=== PATIENT | female | born 1995 | race Caucasian/White ===

== ENCOUNTER 2017-01-04 22:41 | Emergency (ER) | payer OTHER ==
[2017-01-04] MEDS ORDERED: NS 0.9% 1000 ML* 1,000 ML IV ONE (23:14)
[2017-01-04] MEDS ORDERED: RHO D Immune Globulin (HUMAN)* 300 MCG = 1,500 I.U. INJ IM ONE (23:28)
[2017-01-05 00:06] LABS: Hematocrit 33 % (35-47); Mean Corpuscular HGB Conc 33 g/dl (31-36); Mean Corpuscular Hemoglobin 26 pg (27-31); Mean Corpuscular Volume 78 fL (80-97); Mean Platelet Volume 9 um3 (7.4-10.4); Red Blood Count 4.26 10^6/ul (4.0-5.4); Red Cell Distribution Width 16 % (10.5-15); White Blood Count 7.5 10^3/ul (3.5-10.8)
[2017-01-05 00:21] LABS: Albumin 3.9 g/dL (3.2-5.2); BUN/Creatinine Ratio 13.6 (8-20); C Reactive Protein 6.76 mg/L (< 5.00); Calcium 9.2 mg/dL (8.6-10.3); EGFR African American 163.9 (>60); EGFR Non-African American 127.5 (>60); Globulin 2.8 g/dL (2-4); Potassium 3.3 mmol/L (3.5-5.0); Total Bilirubin 0.3 mg/dL (0.2-1.0); Total Protein 6.7 g/dL (6.4-8.9)
--- NOTE | 2017-01-05 00:57 | ED ---
- HPI Summary HPI Summary: 21F LMP september at 12 weeks presents with vaginal bleeding today. She states she was at work and felt like she had to go to the bathroom. In the bathroom she noticed that she had bleed through her underwear into her pants. She states it was a large amount of blood initially but has since slowed down. She denies any symptoms of blood loss such as lightheadedness. She denies any pain. She denies any history of bleeding in previous . She does get rhogram as she is o neg. She admits to occasionally nausea and vomiting but not currently. She admits to chronic constipation with the . She denies any fever. Her first ob appointment is tomorrow. She did contact dr littlejohn who advised her to come here. - History of Current Complaint Chief Complaint: EDVaginalBleeding Stated Complaint: VAG BLEEDING-12 WKS PREG Time Seen by Provider: 01/04/17 23:12 Pain Intensity: 0 - Allergies/Home Medications Allergies/Adverse Reactions: Allergies Allergy/AdvReac Type Severity Reaction Status Date / Time No Known Allergies Allergy Verified 01/04/17 22:44 PMH/Surg Hx/FS Hx/Imm Hx Endocrine/Hematology History: Denies: Hx Anticoagulant Therapy Cardiovascular History: Denies: Hx Hypertension Infectious Disease History: No Infectious Disease History: Denies: Traveled Outside the [place] in Last 30 Days - Family History Known Family History: Positive: Other - no family history of ectopic pregnanct - Social History Alcohol Use: None Substance Use Type: Reports: None Smoking Status (MU): Never Smoked Tobacco Review of Systems Negative: Fever Positive: Vomiting, Diarrhea, Nausea, Other - vaginal bleeding. Negative: Abdominal Pain All Other Systems Reviewed And Are Negative: Yes Physical Exam - Physical Exam Triage Information Reviewed: Yes Vital Signs Reviewed: Yes Appearance: Positive: Well-Appearing Skin: Positive: Warm, Dry Head/Face: Positive: Normal Head/Face Inspection Eyes: Positive: Normal, Conjunctiva Clear Respiratory/Lung Sounds: Positive: Clear to Auscultation, Breath Sounds Present Cardiovascular: Positive: Normal, RRR Abdomen Description: Positive: Nontender, Soft Bowel Sounds: Positive: Present Psychiatric: Positive: Normal Diagnostics - Vital Signs Vital Signs Temp Pulse Resp BP Pulse Ox 01/05/17 00:01 71 105/58 100 01/04/17 23:22 76 98 01/04/17 23:17 77 98 01/04/17 23:16 99.2 F 84 16 97/57 98 01/04/17 23:15 97/57 01/04/17 22:45 99.2 F 77 16 122/67 98 - Laboratory Lab Results: Lab Results 01/04/17 01/04/17 01/04/17 Range/Units 23:50 23:50 23:50 WBC 7.5 (3.5-10.8) 10^3/ul RBC 4.26 (4.0-5.4) 10^6/ul Hgb 11.0 L (12.0-16.0) g/dl Hct 33 L (35-47) % MCV 78 L (80-97) fL MCH 26 L (27-31) pg MCHC 33 (31-36) g/dl RDW 16 H (10.5-15) % Plt Count 143 L (150-450) 10^3/ul MPV 9 (7.4-10.4) um3 Neut % (Auto) 62.6 (38-83) % Lymph % (Auto) 28.7 (25-47) % [place] % (Auto) 7.7 (1-9) % Eos % (Auto) 0.6 (0-6) % Baso % (Auto) 0.4 (0-2) % Absolute Neuts (auto) 4.7 (1.5-7.7) 10^3/ul Absolute Lymphs (auto) 2.2 (1.0-4.8) 10^3/ul Absolute Monos (auto) 0.6 (0-0.8) 10^3/ul Absolute Eos (auto) 0 (0-0.6) 10^3/ul Absolute Basos (auto) 0 (0-0.2) 10^3/ul Absolute Nucleated RBC 0 10^3/ul Nucleated RBC % 0 INR (Anticoag Therapy) 0.89 (0.89-1.11) APTT 29.1 (26.0-36.3) seconds Sodium 134 (133-145) mmol/L Potassium 3.3 L (3.5-5.0) mmol/L Chloride 103 (101-111) mmol/L Carbon Dioxide 24 (22-32) mmol/L Anion Gap 7 (2-11) mmol/L BUN 8 (6-24) mg/dL Creatinine 0.59 (0.51-0.95) mg/dL Est GFR ( Amer) 163.9 (>60) Est GFR (Non-Af Amer) 127.5 (>60) BUN/Creatinine Ratio 13.6 (8-20) Glucose 77 (70-100) mg/dL Calcium 9.2 (8.6-10.3) mg/dL Total Bilirubin 0.30 (0.2-1.0) mg/dL AST 17 (13-39) U/L ALT 17 (7-52) U/L Alkaline Phosphatase 52 (34-104) U/L C-Reactive Protein 6.76 H (< 5.00) mg/L Total Protein 6.7 (6.4-8.9) g/dL Albumin 3.9 (3.2-5.2) g/dL Globulin 2.8 (2-4) g/dL Albumin/Globulin Ratio 1.4 (1-3) Beta HCG, Quant 407332.00 mIU/mL Blood Type Antibody Screen 01/04/17 Range/Units 23:50 WBC (3.5-10.8) 10^3/ul RBC (4.0-5.4) 10^6/ul Hgb (12.0-16.0) g/dl Hct (35-47) % MCV (80-97) fL MCH (27-31) pg MCHC (31-36) g/dl RDW (10.5-15) % Plt Count (150-450) 10^3/ul MPV (7.4-10.4) um3 Neut % (Auto) (38-83) % Lymph % (Auto) (25-47) % [place] % (Auto) (1-9) % Eos % (Auto) (0-6) % Baso % (Auto) (0-2) % Absolute Neuts (auto) (1.5-7.7) 10^3/ul Absolute Lymphs (auto) (1.0-4.8) 10^3/ul Absolute Monos (auto) (0-0.8) 10^3/ul Absolute Eos (auto) (0-0.6) 10^3/ul Absolute Basos (auto) (0-0.2) 10^3/ul Absolute Nucleated RBC 10^3/ul Nucleated RBC % INR (Anticoag Therapy) (0.89-1.11) APTT (26.0-36.3) seconds Sodium (133-145) mmol/L Potassium (3.5-5.0) mmol/L Chloride (101-111) mmol/L Carbon Dioxide (22-32) mmol/L Anion Gap (2-11) mmol/L BUN (6-24) mg/dL Creatinine (0.51-0.95) mg/dL Est GFR ( Amer) (>60) Est GFR (Non-Af Amer) (>60) BUN/Creatinine Ratio (8-20) Glucose (70-100) mg/dL Calcium (8.6-10.3) mg/dL Total Bilirubin (0.2-1.0) mg/dL AST (13-39) U/L ALT (7-52) U/L Alkaline Phosphatase (34-104) U/L C-Reactive Protein (< 5.00) mg/L Total Protein (6.4-8.9) g/dL Albumin (3.2-5.2) g/dL Globulin (2-4) g/dL Albumin/Globulin Ratio (1-3) Beta HCG, Quant mIU/mL Blood Type O Negative Antibody Screen Negative Result Diagrams: 01/04/17 23:50 01/04/17 23:50 Lab Statement: Any lab studies that have been ordered have been reviewed, and results considered in the medical decision making process. - Ultrasound No standard instances Ultrasound Interpretation: Positive (See Comments) - single interatuerine gestation. 12 weeks and on day. hyperechoic fluid collection posterior to gestational sac suggesting subchorionic bleed. cardiac activity documented at 150 beats per minute. Ultrasound Interpretation Completed By: Radiologist Course/Dx - Course Course Of Treatment: 21F LMP september at 12 weeks presents with vaginal bleeding today. She states she was at work and felt like she had to go to the bathroom. In the bathroom she noticed that she had bleed through her underwear into her pants. She states it was a large amount of blood initially but has since slowed down. She denies any symptoms of blood loss such as lightheadedness. She denies any pain. on exam she is nontender. h/h is 11 but has been in that range before. vitals stable. u/s shows subchronionic hemorrhage. explained results to patient and told that needs to follow up with obgyn. patient understands and agrees with plan. - Differential Diagnosis/HQI/PQRI: Spontaneous , Intrauterine , Subchorionic Hemorrhage - Diagnoses Provider Diagnoses: Subchorionic hemorrhage in first trimester Discharge - Discharge Plan Condition: Good Disposition: HOME Patient Education Materials: Subchorionic Hemorrhage (ED) Referrals: Jostin Sandy MD [Primary Care Provider] - Po Littlejohn MD [Medical Doctor] - Additional Instructions: Keep appointment with dr Littlejohn, will need repeat HCG likely in 2 days to watch trend Return to ED if develop fever, lightheadedness, persistent heavy bleeding, or any new or worsening symptoms
[2017-01-05 01:55] LABS: Urine Bacteria Absent (Absent); Urine Bilirubin Negative (Negative); Urine Glucose Negative (Negative); Urine Nitrite Negative (Negative)
[2017-01-05 02:21] VITALS: BP 92/51
--- NOTE | 2017-01-05 07:49 | RAD ---
INDICATION: Early with bleeding COMPARISON: None TECHNIQUE: Transabdominal scanning was performed for early evaluation. FINDINGS: There is an early intrauterine gestation with confirmation of pole, yolk sac, movement, and cardiac activity of 150 beats for minute. The crown-rump length corresponds to a 12 week 1 day gestation. There is a probable small subchorionic hemorrhage measuring approximately 2.5 x 1.0 cm when measured in transverse. The right ovary is not identified. The left ovary measures 4.7 x 2.1 x 2.2 cm and contains a small cyst measuring 2.1 cm. There is flow to the left ovary. IMPRESSION: 12 WEEK 1 DAY GESTATION WITH CONFIRMATION OF CARDIAC ACTIVITY. SUSPECT SMALL SUBCHORIONIC HEMORRHAGE.
== END 2017-01-05 02:25 | disposition home or self-care (01) ==
LOC: ED 22:41
DX: O20.9 Hemorrhage in early pregnancy, unspecified (principal); R11.2 Nausea with vomiting, unspecified; R19.7 Diarrhea, unspecified; Z3A.12 12 weeks gestation of pregnancy
CPT/HCPCS: 36415; 76801; 80053; 81003; 81015; 84702; 85025; 85610; 85730; 86140; 86850; 86900; 86901; 96360; 96372; 99283; J2790

== ENCOUNTER 2017-05-26 13:42 | Emergency (ER) | payer OTHER ==
[2017-05-26] MEDS: NS 0.9% 1000 ML* 1,000 ML IV ONE ×2 (14:20→15:00)
[2017-05-26 14:40] LABS: Hematocrit 34 % (35-47); Hemoglobin 10.9 g/dl (12.0-16.0); Mean Corpuscular HGB Conc 32 g/dl (31-36); Mean Corpuscular Hemoglobin 25 pg (27-31); Mean Corpuscular Volume 78 fL (80-97); Mean Platelet Volume 9 um3 (7.4-10.4); Red Blood Count 4.32 10^6/ul (4.0-5.4); Red Cell Distribution Width 19 % (10.5-15); White Blood Count 9.2 10^3/ul (3.5-10.8)
[2017-05-26] MEDS ORDERED: Metoclopramide IV* 5 MG/ML 2 ML VIAL IV SLOW PU ONE (14:51)
[2017-05-26] MEDS ORDERED: NS 0.9% 1000 ML* 2,000 ML IV ONE (14:51)
[2017-05-26 14:55] LABS: ALT 10 U/L (7-52); AST 18 U/L (13-39); Albumin 3.2 g/dL (3.2-5.2); Alkaline Phosphatase 173 U/L (34-104); Anion Gap 8 mmol/L (2-11); BUN/Creatinine Ratio 13.2 (8-20); Blood Urea Nitrogen 7 mg/dL (6-24); C Reactive Protein 24.52 mg/L (< 5.00); CO2 Carbon Dioxide 24 mmol/L (22-32); Calcium 8.9 mg/dL (8.6-10.3); Chloride 104 mmol/L (101-111); EGFR African American 183.8 (>60); Globulin 3.4 g/dL (2-4); Glucose 74 mg/dL (70-100); Lipase < 10 U/L (11.0-82.0); Potassium 3.6 mmol/L (3.5-5.0); Sodium 136 mmol/L (133-145); Total Protein 6.6 g/dL (6.4-8.9)
[2017-05-26 14:59] LABS: Troponin I 0.04 ng/mL (<0.04)
[2017-05-26 15:22] LABS: TSH (Thyroid Stimulating Horm) 0.89 mcIU/mL (0.34-5.60)
[2017-05-26] MEDS ORDERED: NS 0.9% 1000 ML* 1,000 ML IV ONE (15:41)
[2017-05-26 16:32] LABS: Urine Bacteria Absent (Absent); Urine Bilirubin Negative (Negative); Urine Glucose Negative (Negative); Urine Nitrite Negative (Negative)
--- NOTE | 2017-05-26 19:09 | RAD ---
Indication: Syncope. Real-time sonography of the was performed. There is a single intrauterine gestation in cephalic presentation. There is a posterior placenta without evidence of placenta previa. heart activity is noted at 176 bpm. motion is noted. Amniotic fluid is within normal limits. The cervix is closed. The BPD measures 8.3 cm corresponding to gestational age of 33 weeks 4 days. Head circumference measures 30.2 cm corresponding to gestational age of 33 weeks 4 days. Abdominal circumference measures 28.9 cm corresponding to gestational age of 33 weeks 0 days. Femur length measures 6.3 cm corresponding to gestational age of 32 weeks 6 days. The estimated gestational age determined by initial ultrasound is 37 weeks 2 days. Estimated date of delivery is July 12, 2017. A full survey was not performed due to the emergent nature of the study. If clinically indicated survey could BE performed if not already performed. IMPRESSION: There is a single intrauterine with heart activity at 176 bpm. The estimated gestational age determined by initial ultrasound is 33 weeks 2 days. Estimated date of delivery is July 12, 2017. Estimated weight is 2085 g which is at the 31st percentile. anatomic survey was not performed due to the emergent nature of the study. This can be done as an outpatient clinically warranted and not already performed.
[2017-05-26] MEDS ORDERED: Metoclopramide TAB* 10 MG PO ONE (19:18)
--- NOTE | 2017-05-26 19:25 | ED ---
Oneida Henderson Gabriel, scribed for Hiren Feliciano MD on 05/26/17 at 1359 . Syncope/Near Syncope - HPI Summary HPI Summary: This patient is a 22 year old F presenting to [facility] accompanied by family with a chief complaint of syncopal episodes since earlier today. The patient rates the pain 6/10 in severity. Patient reports vomiting, nausea, joint pain, and watery diarrhea. Patient denies vaginal discharge. Patient has been lying in bed all day intermittently passing out. She says before she passes out she gets very dizzy and everything just goes black. She is currently 31 weeks and says the babys movement is normal. She denies any symptoms yesterday. - History Of Current Complaint Chief Complaint: EDGeneral Time Seen by Provider: 05/26/17 13:53 Hx Obtained From: Patient Onset/Duration: Sudden Onset, Still Present, Resolved Timing: Intermittent Episode Lasting Context: Loss Of Consciousness Activity At Onset: At Rest Associated Head Trauma: No Alleviating Factor(s): Spontaneous Resolution Associated Signs And Symptoms: Negative - vaginal discharge, Other - vomiting, nausea, joint pain, and watery diarrhea. Dizziness - Allergies/Home Medications Allergies/Adverse Reactions: Allergies Allergy/AdvReac Type Severity Reaction Status Date / Time No Known Allergies Allergy Verified 01/04/17 22:44 PMH/Surg Hx/FS Hx/Imm Hx Previously Healthy: No Endocrine/Hematology History: Denies: Hx Anticoagulant Therapy Cardiovascular History: Denies: Hx Hypertension Infectious Disease History: No Infectious Disease History: Denies: Traveled Outside the [place] in Last 30 Days - Family History Known Family History: Positive: Other - no family history of ectopic pregnanct - Social History Alcohol Use: None Substance Use Type: Reports: None Smoking Status (MU): Never Smoked Tobacco Review of Systems Positive: Vomiting, Diarrhea, Nausea Negative: discharge Positive: Arthralgia Neurological: Other - syncope All Other Systems Reviewed And Are Negative: Yes Physical Exam - Summary Physical Exam Summary: General: well-appearing, no pain distress Skin: warm, color reflects adequate perfusion, dry Head: normal Eyes: EOMI, ROMAN ENT: dry mucus membranes Neck: supple, nontender Respiratory: CTA, breath sounds present Cardiovascular: RRR Abdomen: soft, nontender. uterus is firm. Bowel: present Musculoskeletal: normal, strength/ROM intact Neurological: normal, sensory/motor intact, A&O x3 Psychological: affect/mood appropriate Triage Information Reviewed: Yes Vital Signs On Initial Exam: Initial Vitals Temp Pulse Resp BP Pulse Ox 97.4 F 100 20 99/67 99 05/26/17 13:45 05/26/17 13:45 05/26/17 13:45 05/26/17 13:45 05/26/17 13:45 Vital Signs Reviewed: Yes Diagnostics - Vital Signs Vital Signs Temp Pulse Resp BP Pulse Ox 05/26/17 13:45 97.4 F 100 20 99/67 99 - Laboratory Lab Results: Lab Results 05/26/17 05/26/17 05/26/17 Range/Units 14:20 14:20 14:20 WBC 9.2 (3.5-10.8) 10^3/ul RBC 4.32 (4.0-5.4) 10^6/ul Hgb 10.9 L (12.0-16.0) g/dl Hct 34 L (35-47) % MCV 78 L (80-97) fL MCH 25 L (27-31) pg MCHC 32 (31-36) g/dl RDW 19 H (10.5-15) % Plt Count 161 (150-450) 10^3/ul MPV 9 (7.4-10.4) um3 Neut % (Auto) 89.0 H (38-83) % Lymph % (Auto) 7.3 L (25-47) % [place] % (Auto) 3.5 (1-9) % Eos % (Auto) 0 (0-6) % Baso % (Auto) 0.2 (0-2) % Absolute Neuts (auto) 8.2 H (1.5-7.7) 10^3/ul Absolute Lymphs (auto) 0.7 L (1.0-4.8) 10^3/ul Absolute Monos (auto) 0.3 (0-0.8) 10^3/ul Absolute Eos (auto) 0 (0-0.6) 10^3/ul Absolute Basos (auto) 0 (0-0.2) 10^3/ul Absolute Nucleated RBC 0 10^3/ul Nucleated RBC % 0 INR (Anticoag Therapy) 0.86 (0.77-1.02) APTT 25.2 L (26.0-36.3) seconds Sodium 136 (133-145) mmol/L Potassium 3.6 (3.5-5.0) mmol/L Chloride 104 (101-111) mmol/L Carbon Dioxide 24 (22-32) mmol/L Anion Gap 8 (2-11) mmol/L BUN 7 (6-24) mg/dL Creatinine 0.53 (0.51-0.95) mg/dL Est GFR ( Amer) 183.8 (>60) Est GFR (Non-Af Amer) 143.0 (>60) BUN/Creatinine Ratio 13.2 (8-20) Glucose 74 (70-100) mg/dL Lactic Acid (0.5-2.0) mmol/L Calcium 8.9 (8.6-10.3) mg/dL Total Bilirubin 0.60 (0.2-1.0) mg/dL AST 18 (13-39) U/L ALT 10 (7-52) U/L Alkaline Phosphatase 173 H (34-104) U/L Troponin I 0.04 H* (<0.04) ng/mL C-Reactive Protein 24.52 H (< 5.00) mg/L Total Protein 6.6 (6.4-8.9) g/dL Albumin 3.2 (3.2-5.2) g/dL Globulin 3.4 (2-4) g/dL Albumin/Globulin Ratio 0.9 L (1-3) Lipase < 10 L (11.0-82.0) U/L TSH 0.89 (0.34-5.60) mcIU/mL Urine Color Urine Appearance Urine pH (5-9) Ur Specific [place] (1.010-1.030) Urine Protein (Negative) Urine Ketones (Negative) Urine Blood (Negative) Urine Nitrate (Negative) Urine Bilirubin (Negative) Urine Urobilinogen (Negative) Ur Leukocyte Esterase (Negative) Urine WBC (Auto) (Absent) Urine RBC (Auto) (Absent) Ur Squamous Epith Cells (Absent) Urine Bacteria (Absent) Urine Glucose (Negative) 05/26/17 05/26/17 05/26/17 Range/Units 14:20 15:12 17:32 WBC (3.5-10.8) 10^3/ul RBC (4.0-5.4) 10^6/ul Hgb (12.0-16.0) g/dl Hct (35-47) % MCV (80-97) fL MCH (27-31) pg MCHC (31-36) g/dl RDW (10.5-15) % Plt Count (150-450) 10^3/ul MPV (7.4-10.4) um3 Neut % (Auto) (38-83) % Lymph % (Auto) (25-47) % [place] % (Auto) (1-9) % Eos % (Auto) (0-6) % Baso % (Auto) (0-2) % Absolute Neuts (auto) (1.5-7.7) 10^3/ul Absolute Lymphs (auto) (1.0-4.8) 10^3/ul Absolute Monos (auto) (0-0.8) 10^3/ul Absolute Eos (auto) (0-0.6) 10^3/ul Absolute Basos (auto) (0-0.2) 10^3/ul Absolute Nucleated RBC 10^3/ul Nucleated RBC % INR (Anticoag Therapy) (0.77-1.02) APTT (26.0-36.3) seconds Sodium (133-145) mmol/L Potassium (3.5-5.0) mmol/L Chloride (101-111) mmol/L Carbon Dioxide (22-32) mmol/L Anion Gap (2-11) mmol/L BUN (6-24) mg/dL Creatinine (0.51-0.95) mg/dL Est GFR ( Amer) (>60) Est GFR (Non-Af Amer) (>60) BUN/Creatinine Ratio (8-20) Glucose (70-100) mg/dL Lactic Acid 0.9 (0.5-2.0) mmol/L Calcium (8.6-10.3) mg/dL Total Bilirubin (0.2-1.0) mg/dL AST (13-39) U/L ALT (7-52) U/L Alkaline Phosphatase (34-104) U/L Troponin I 0.00 (<0.04) ng/mL C-Reactive Protein (< 5.00) mg/L Total Protein (6.4-8.9) g/dL Albumin (3.2-5.2) g/dL Globulin (2-4) g/dL Albumin/Globulin Ratio (1-3) Lipase (11.0-82.0) U/L TSH (0.34-5.60) mcIU/mL Urine Color Yellow Urine Appearance Clear Urine pH 6.0 (5-9) Ur Specific [place] 1.012 (1.010-1.030) Urine Protein 1+(30 mg/dl) H (Negative) Urine Ketones 2+ H (Negative) Urine Blood Negative (Negative) Urine Nitrate Negative (Negative) Urine Bilirubin Negative (Negative) Urine Urobilinogen Negative (Negative) Ur Leukocyte Esterase Trace H (Negative) Urine WBC (Auto) Trace(0-5/hpf) (Absent) Urine RBC (Auto) Trace(0-2/hpf) (Absent) Ur Squamous Epith Cells Present H (Absent) Urine Bacteria Absent (Absent) Urine Glucose Negative (Negative) Result Diagrams: 05/26/17 14:20 05/26/17 14:20 Lab Statement: Any lab studies that have been ordered have been reviewed, and results considered in the medical decision making process. - EKG 14:22 Cardiac Rate: Tachycardia EKG Rhythm: Sinus Tachycardia - 109 BPM Ectopy: None EKG Interpretation: Flipped T waves in V1, V2, and III 1700 Cardiac Rate: Tachycardia EKG Rhythm: Sinus Tachycardia - 108 BPM Ectopy: None EKG Interpretation: Flipped T waves in V1, V2, and III - Additional Comments Diagnostic Additional Comments: An US reveals, per radiology, There is a single intrauterine with heart activity at 176 bpm. The estimated gestational age determined by initial ultrasound is 33 weeks 2 days. Estimated date of delivery is July 12, 2017. Estimated weight is 2085 g which is at the 31st percentile. ED physician has reviewed this report and agrees. Re-Evaluation - Re-Evaluation First Eval Re-Evaluation Time: 14:30 Change: Worse - Patient had an episode of syncope and her BP was low. Second Eval Re-Evaluation Time: 15:38 Change: Improved - Pt has improved her systolic is 106. She is now laying flat as opposed to tilted back. Next a PO challenge will be performed. Third Eval Re-Evaluation Time: 19:19 Change: Improved Comment: Patient is feeling better and the results of her US were discussed with her. Course/Dx Course Of Treatment: PATIENT HAD 2 SYNCOPAL EPISODES IN THE ED UPON ARRIVA. NS 4 LITERS AND REGLAN 10MG IV GIVEN. DISCUSSED WITH OBSTETRICS, DR KINGSTON. INITIAL TROPONIN 0.04; PATIENT DENIED CHEST PAIN. TROPONIN RECHECK WAS 0.00. NO CHANGE IN THE 2 EKGS DONE IN THE ED. PREG U/S DONE WHICH WAS NORMAL. DISCUSSED ADMISSION VERSES DISCHARGE WITH PATIENT/FAMILY. THE PATIENT PREFED DISCHARGE. PATIENT ATE IN ED, FEELS IMPROVED. DISCHARGE HOME RX REGLAN. F/U WITH OBGYN; RETURN TO ED IF WORSE. - Diagnoses Provider Diagnoses: Dehydration during , Syncope, Nausea, vomiting, and diarrhea - Physician Notifications Discussed Care of Patient With: Radha Kingston Time Discussed With Above Provider: 14:20 Instructed by Provider To: Other - Dr. Kingston recommended to keep hydrating the patient with IV fluids and then perform a PO challenge to determine if she shold be admitted or not. He also said due to the lack of ABD pain and contractions there should be no more imagining done. - Critical Care Time Critical Care Time: 30-74 min Discharge - Discharge Plan Condition: Stable Disposition: HOME Prescriptions: Metoclopramide TAB* [Reglan TAB*] 10 mg PO Q6H PRN #10 tab PRN Reason: Nausea Patient Education Materials: Nausea and Vomiting in (ED), Dehydration (ED), Syncope (ED), Acute Nausea and Vomiting (ED) Referrals: Jostin Sandy MD [Primary Care Provider] - Additional Instructions: FOLLOW UP WITH YOUR OBGYN. CALL TOMORROW FOR FOLLOW UP. RETURN TO THE EMERGENCY DEPARTMENT FOR ANY WORSENING OF YOUR CONDITION OR QUESTIONS OR CONCERNS. The documentation as recorded by the Oneida valle Gabriel accurately reflects the service I personally performed and the decisions made by me, Hiren Feliciano MD.
[2017-05-26 20:09] VITALS: BP 95/50
== END 2017-05-26 20:00 | disposition home or self-care (01) ==
LOC: ED 13:42
DX: O21.2 Late vomiting of pregnancy (principal); O26.893 Other specified pregnancy related conditions, third trimester; Z3A.31 31 weeks gestation of pregnancy; R55 Syncope and collapse; R19.7 Diarrhea, unspecified
CPT/HCPCS: 36415; 76815; 80053; 81003; 81015; 83605; 83690; 84443; 84484; 85025; 85610; 85730; 86140; 87086; 93005; 96360; 96374; 99285; A9270-GY; J2765

== ENCOUNTER 2017-06-26 02:57 | Inpatient (IN) | payer OTHER, MEDICAID ==
[2017-06-26] MEDS ORDERED: Penicillin G Potassium IV* 5,000,000 UNITS in NS 0.9% 100 ML* 100 ML IVPB ONE (04:23)
[2017-06-26 04:59] LABS: ABS Basophils 0 10^3/ul (0-0.2); ABS Eosinophils 0.1 10^3/ul (0-0.6); ABS Lymphocytes 2.4 10^3/ul (1.0-4.8); ABS Monocytes 0.9 10^3/ul (0-0.8); ABS Nucleated RBC 0 10^3/ul; Eosinophil % 1.1 % (0-6); Hematocrit 30 % (35-47); Lymphocyte % 21.1 % (25-47); Mean Corpuscular HGB Conc 33 g/dl (31-36); Mean Corpuscular Hemoglobin 25 pg (27-31); Mean Corpuscular Volume 75 fL (80-97); Mean Platelet Volume 10 um3 (7.4-10.4); Nucleated Red Blood Cells % 0.1; Platelet Count 156 10^3/ul (150-450); Red Blood Count 4.04 10^6/ul (4.0-5.4); Red Cell Distribution Width 19 % (10.5-15); White Blood Count 11.4 10^3/ul (3.5-10.8)
[2017-06-26] MEDS ORDERED: Oxytocin in LR* 20 UNITS/1,000 ML BAG IVPB SCH ×2 (05:00→15:00)
[2017-06-26] MEDS ORDERED: Oxytocin in LR* 20 UNITS/1,000 ML BAG IVPB ONE (06:43)
[2017-06-26] MEDS ORDERED: OBEPIDURAL* 250 ML EPIDURAL ONE (09:01)
[2017-06-26] MEDS ORDERED: Famotidine TAB* 20 MG PO PRN (09:51)
[2017-06-26] MEDS ORDERED: Phenylephrine IV* 40 MCG/ML 10 ML SYRINGE IV PUSH PRN ×2 (09:51)
[2017-06-26] MEDS ORDERED: EPHEDrine (Pressors)* 50 MG/ML VIAL IV PUSH PRN ×2 (09:51)
[2017-06-26] MEDS ORDERED: Sodium Citrate/Citric Acid* 15 ML UDC PO PRN (09:51)
[2017-06-26] MEDS ORDERED: OBEPIDURAL* 250 ML EPIDURAL SCH (10:00)
[2017-06-26] MEDS ORDERED: Chloroprocaine 3%* 20 ML VIAL ONE (11:41)
[2017-06-26] MEDS ORDERED: ceFAZolin 1 GM VIAL(*) ONE (12:04)
[2017-06-26] MEDS ORDERED: OXYTOCIN* 10 UNITS/ML 1 ML VIAL ONE (12:09)
[2017-06-26] MEDS ORDERED: Acetaminophen TAB* 325 MG PO PRN (14:44)
[2017-06-26] MEDS ORDERED: Ibuprofen TAB* 600 MG PO PRN (14:44)
[2017-06-26] MEDS ORDERED: Dibucaine 1% 28.35 GM TUBE PR PRN (14:44)
[2017-06-26] MEDS ORDERED: RHO D Immune Globulin (HUMAN)* 300 MCG = 1,500 I.U. INJ IM ONE (14:44)
[2017-06-26] MEDS ORDERED: Methylergonovine INJ* 0.2 MG/ML 1ML AMP IM ONE (14:44)
[2017-06-26] MEDS ORDERED: Witch Hazel PAD* JAR TOPICAL PRN (14:44)
[2017-06-26] MEDS ORDERED: ceFAZolin 2 GM PREMIX (*) 2 GM/50 ML BAG IVPB ONE (14:46)
[2017-06-26] MEDS ORDERED: Methylergonovine INJ* 0.2 MG/ML 1ML AMP ONE (18:47)
[2017-06-26] MEDS: Docusate CAP* 100 MG PO SCH (21:07)
[2017-06-26] MEDS: Simethicone TAB* 80 MG TAB.CHEW PO SCH ×2 (21:08)
[2017-06-27 08:56] LABS: ABS Basophils 0.1 10^3/ul (0-0.2); ABS Eosinophils 0 10^3/ul (0-0.6); ABS Lymphocytes 2.3 10^3/ul (1.0-4.8); ABS Monocytes 0.7 10^3/ul (0-0.8); ABS Neutrophils 8.3 10^3/ul (1.5-7.7); ABS Nucleated RBC 0 10^3/ul; Eosinophil % 0.4 % (0-6); Hematocrit 27 % (35-47); Hemoglobin 8.7 g/dl (12.0-16.0); Lymphocyte % 19.9 % (25-47); Mean Corpuscular HGB Conc 33 g/dl (31-36); Mean Corpuscular Hemoglobin 24 pg (27-31); Mean Corpuscular Volume 75 fL (80-97); Mean Platelet Volume 9 um3 (7.4-10.4); Nucleated Red Blood Cells % 0; Platelet Count 163 10^3/ul (150-450); Red Blood Count 3.54 10^6/ul (4.0-5.4); Red Cell Distribution Width 18 % (10.5-15); White Blood Count 11.3 10^3/ul (3.5-10.8)
[2017-06-27] MEDS: Docusate CAP* 100 MG PO SCH ×3 (10:03→20:29)
[2017-06-27] MEDS: Ferrous Gluconate TAB* 324 MG TAB PO SCH ×2 (10:03→20:29)
[2017-06-27] MEDS: Simethicone TAB* 80 MG TAB.CHEW PO SCH ×4 (12:05→20:41)
[2017-06-27] MEDS: Penicillin G Potassium IV* 2,500,000 UNITS in NS 0.9% 100 ML* 100 ML IVPB SCH (13:14)
--- NOTE | 2017-06-27 14:08 | OP ---
DATE OF OPERATION: 06/26/17 - ROOM #MCHOB-101 DATE OF : 89 SURGEON: Radha Kingston MD ANESTHESIOLOGIST: Jose Oconnell DO ANESTHESIA: Epidural. PRE-OP DIAGNOSIS: Retained placenta after vaginal delivery. POST-OP DIAGNOSIS: Retained placenta after vaginal delivery. OPERATIVE PROCEDURE: Manual extraction of retained placenta. INDICATIONS: This patient is a 22-year-old 2, para 2, who delivered at 1024 this morning. Delivery of the was uncomplicated. However, delivery of the placenta was difficult and required manual removal of the majority of the placenta. The initial removal seemed to have been successful; however, during repair of the vaginal laceration, the patient was having return of persistent bleeding. On further manual examination, there was palpable placental tissue that cannot be reached without better anesthesia. The patient was counseled for manual extraction of the placental tissue in the operating room under better anesthesia and consent was signed. ESTIMATED BLOOD LOSS: 300 cc. URINE OUTPUT: 200 cc. IV FLUIDS: 600 cc lactated Ringer's. MATERIALS TO LAB: None. FINDINGS: Moderate amount of placental tissue retained in the fundus of the uterus. This tissue was removed completely with digital extraction. The uterus palpated very smooth after it had all been removed. COMPLICATIONS: None. DESCRIPTION OF PROCEDURE: The risks, benefits, and alternatives were described to the patient and informed consent was obtained. The patient was taken to the operating room with IV running where epidural anesthesia was induced and found to be adequate. A surgical block was performed. A time-out was performed. The bladder was emptied. One hand was placed into the uterus and placental tissue was able to be easily palpated. With several passes, all of the remaining placental tissue was able to be removed. Once this was complete, the entire uterine cavity was palpated and found to be very smooth. There was good return of fundal tone at that time. Bleeding also decreased significantly. The patient was given IV Pitocin and 1 dose of IM Methergine during the procedure. An extension of a labial laceration was noted after removal of the placenta and this was reapproximated using 3-0 Vicryl Rapide in a running fashion. At that time, the patient was returned to the supine position. Sponge, lap, and needle counts were correct x2. The patient tolerated the procedure well. [id number]/[facility] #: [id number] [facility]
[2017-06-28 08:22] VITALS: BP 104/59
[2017-06-28] MEDS: Ferrous Gluconate TAB* 324 MG TAB PO SCH (09:35)
[2017-06-28] MEDS: Simethicone TAB* 80 MG TAB.CHEW PO SCH (09:35)
[2017-06-28] MEDS: Docusate CAP* 100 MG PO SCH (09:35)
== END 2017-06-28 12:42 | disposition home or self-care (01) | DRG 541 ==
LOC: MCHOBOUT 02:57 → MCHOB 04:07
PROVIDERS: ADMIT Obstetrics & Gynecology; ATTEND Obstetrics & Gynecology
PROC: 0KQM0ZZ Repair Perineum Muscle, Open Approach (ICD-10-PCS; 2017-06-26)
PROC: 10D17Z9 Manual Extraction of Products of Conception, Retained, Via Natural or Artificial Opening (ICD-10-PCS; 2017-06-26)
PROC: 10E0XZZ Delivery of Products of Conception, External Approach (ICD-10-PCS; principal; 2017-06-26 11:44)
DX: O42.013 Preterm premature rupture of membranes, onset of labor within 24 hours of rupture, third trimester (principal); O72.2 Delayed and secondary postpartum hemorrhage; O71.4 Obstetric high vaginal laceration alone; O69.81X0 Labor and delivery complicated by cord around neck, without compression, not applicable or unspecified; O69.89X0 Labor and delivery complicated by other cord complications, not applicable or unspecified; Z3A.36 36 weeks gestation of pregnancy; Z37.0 Single live birth; O90.81 Anemia of the puerperium; D64.9 Anemia, unspecified
CPT/HCPCS: 36415; 84112; 85025; 85461; 86850; 86870; 86880; 86900; 86901; A9270-GY; J0690; J2210; J2400; J2540; J2590; J2790

== ENCOUNTER 2018-03-21 10:45 | Emergency (ER) | payer OTHER ==
--- NOTE | 2018-03-21 11:55 | ED ---
Upper Extremity Pain - HPI Summary HPI Summary: Patient is a 22 y/o female who presents to the ED s/p wasp sting [employer]. She was trying to remove her AC from her bedroom window and thought a hornet nest above the unit was dormant. Patient was then swarmed with white-faced hornets and was stung on her right fourth finger. She tried to remove the rings on her finger but was unable to. Patient denies any SOB, tight throat, or lip/tongue swelling. - History of Current Complaint Chief Complaint: EDExtremityUpper Stated Complaint: LT FINGER SWELLING Time Seen by Provider: 03/21/18 11:11 Hx Obtained From: Patient Mechanism Of Injury: Other - Hornet sting Onset/Duration: Started Hours Ago - [employer], Still Present Timing: Constant Pain Location: Finger - Right fourth Alleviating Factor(s): Nothing Associated Signs & Symptoms: Positive: Swelling, Redness Related History: Other: - White-faced hornet sting - Allergies/Home Medications Allergies/Adverse Reactions: Allergies Allergy/AdvReac Type Severity Reaction Status Date / Time No Known Allergies Allergy Verified 03/21/18 11:01 Home Medications: Home Medications NK [No Home Medications Reported] 03/21/18 [History Confirmed 03/21/18] PMH/Surg Hx/FS Hx/Imm Hx Endocrine/Hematology History: Denies: Hx Anticoagulant Therapy Cardiovascular History: Denies: Hx Hypertension Respiratory History: Denies: Hx Asthma - Surgical History Surgery Procedure, Year, and Place: Left fourth finger stitches Infectious Disease History: No Infectious Disease History: Denies: Traveled Outside the [place] in Last 30 Days - Family History Known Family History: Positive: Other - NEGATIVE: ectopic - Social History Alcohol Use: None Hx Substance Use: No Substance Use Type: Reports: None Hx Tobacco Use: No Smoking Status (MU): Never Smoked Tobacco Have You Smoked in the Last Year: No Review of Systems Positive: Other - NEGATIVE: lip/tongue swelling, throat tightening Negative: Shortness Of Breath Positive: Myalgia - Fourth finger hornet sting All Other Systems Reviewed And Are Negative: Yes Physical Exam - Summary Physical Exam Summary: VITAL SIGNS: Reviewed. GENERAL: Patient is a well-developed and nourished FEMALE who is lying comfortable in the stretcher. Patient is not in any acute respiratory distress. HEAD AND FACE: No signs of trauma. No ecchymosis, hematomas or skull depressions. No sinus tenderness. EYES: PERRLA, EOMI x 2, No injected conjunctiva, no nystagmus. EARS: Hearing grossly intact. Ear canals and tympanic membranes are within normal limits. MOUTH: No tongue or lip swelling. No pharyngeal edema. Airway is patent. NECK: Supple, trachea is midline, no adenopathy, no JVD, no carotid bruit, no c- spine tenderness, neck with full ROM. CHEST: Symmetric, no tenderness at palpation LUNGS: Clear to auscultation bilaterally. No wheezing or crackles. CVS: Regular rate and rhythm, S1 and S2 present, no murmurs or gallops appreciated. ABDOMEN: Soft, non-tender. No signs of distention. No rebound no guarding, and no masses palpated. Bowel sounds are normal. EXTREMITIES: FROM in all major joints, no cyanosis or clubbing. Left fourth digit with swelling, especially from distal PIPs. Unable to remove rings. NEURO: Alert and oriented x 3. No acute neurological deficits. Speech is normal and follows commands. SKIN: Dry and warm Triage Information Reviewed: Yes Vital Signs On Initial Exam: Initial Vitals Temp Pulse Resp BP Pulse Ox 97.5 F 73 17 97/62 98 03/21/18 10:55 03/21/18 10:55 03/21/18 10:55 03/21/18 10:55 03/21/18 10:55 Vital Signs Reviewed: Yes Diagnostics - Vital Signs Vital Signs Temp Pulse Resp BP Pulse Ox 03/21/18 10:55 97.5 F 73 17 97/62 98 - Laboratory Lab Statement: Any lab studies that have been ordered have been reviewed, and results considered in the medical decision making process. Course/Dx - Course Assessment/Plan: Patient is a 22 y/o female who presents to the ED s/p wasp sting [employer]. She was trying to remove her AC from her bedroom window and thought a hornet nest above the unit was dormant. Patient was then swarmed with white- faced hornets and was stung on her right fourth finger. She tried to remove the rings on her finger but was unable to. Patient denies any SOB, tight throat, or lip/tongue swelling. The rings were removed. There were no complications.. The swelling in the distal aspect of the fourth digit improving. The patient is feeling better and therefore the patient was discharged home with follow-up with PCP. Patient was given instructions to return to the emergency room if she develops any increase in pain, any signs of infection. The patient understands and agrees. - Diagnoses Differential Diagnosis/HQI/PQRI: Positive: Burn, Bursitis, Contusion, Strain, Sprain Provider Diagnoses: Bee sting, Finger swelling Discharge - Sign-Out/Discharge Documenting (check all that apply): Patient Departure - Discharge Plan Condition: Stable Disposition: HOME Patient Education Materials: Insect Bite or Sting (ED) Referrals: Po Monaco MD [Primary Care Provider] - 3 Days Additional Instructions: RETURN TO THE ED FOR ANY WORSENING OR NEW SYMPTOMS. - Billing Disposition and Condition Condition: STABLE Disposition: Home - Attestation Statements Document Initiated by Cristiano: Yes Documenting Scribe: Nuzhat Crisostomo Provider For Whom Cristiano is Documenting (Include Credential): Nuno Key MD Scribe Attestation: Nuzhat Henderson scribed for Nuno Key MD on 03/23/18 at 0906. Scribe Documentation Reviewed: Yes Provider Attestation: The documentation as recorded by the Nuzhat valle accurately reflects the service I personally performed and the decisions made by , Nuno Key MD
[2018-03-21 12:32] VITALS: BP 94/68
== END 2018-03-21 12:04 | disposition home or self-care (01) ==
LOC: ED 10:45
DX: T63.441A Toxic effect of venom of bees, accidental (unintentional), initial encounter (principal); R60.0 Localized edema; Y92.9 Unspecified place or not applicable
CPT/HCPCS: 99281

== ENCOUNTER 2018-07-13 22:30 | Emergency (ER) | payer OTHER ==
[2018-07-13] MEDS ORDERED: Penicillin VK TAB* 250 MG PO ONE (23:51)
[2018-07-13] MEDS ORDERED: Ketorolac INJ* 30 MG/ML 1 ML VIAL IM ONE (23:51)
[2018-07-13] MEDS ORDERED: oxyCODONE/Acetamin 5/325 MG* TAB PO ONE (23:51)
--- NOTE | 2018-07-14 00:20 | ED ---
Throat Pain/Nasal Congestion - HPI Summary HPI Summary: 23-year-old female presents with dental pain today. She will not able to follow up with dentist for a couple months. She states that the pain has been increasing. She states that ibuprofen for pain without relief. She denies any nausea or vomiting. No chest pain or shortness breath. No pain or swelling around her eyes. She denies a history of dental infections. - History of Current Complaint Chief Complaint: EDDentalPain Time Seen by Provider: 07/13/18 23:40 - Allergies/Home Medications Allergies/Adverse Reactions: Allergies Allergy/AdvReac Type Severity Reaction Status Date / Time No Known Allergies Allergy Verified 03/21/18 11:01 PMH/Surg Hx/FS Hx/Imm Hx Endocrine/Hematology History: Denies: Hx Anticoagulant Therapy Cardiovascular History: Denies: Hx Hypertension Respiratory History: Denies: Hx Asthma - Surgical History Surgery Procedure, Year, and Place: Left fourth finger stitches Infectious Disease History: No Infectious Disease History: Denies: Traveled Outside the [place] in Last 30 Days - Family History Known Family History: Positive: Other - NEGATIVE: ectopic - Social History Alcohol Use: None Hx Substance Use: No Substance Use Type: Reports: None Hx Tobacco Use: No Smoking Status (MU): Never Smoked Tobacco Have You Smoked in the Last Year: No Review of Systems Negative: Fever Positive: Dental Pain Negative: Chest Pain Negative: Shortness Of Breath All Other Systems Reviewed And Are Negative: Yes Physical Exam Triage Information Reviewed: Yes Vital Signs On Initial Exam: Initial Vitals Temp Pulse Resp BP Pulse Ox 96.8 F 67 18 120/70 96 07/13/18 22:35 07/13/18 22:35 07/13/18 22:35 07/13/18 22:35 07/13/18 22:35 Vital Signs Reviewed: Yes Appearance: Positive: Well-Appearing Skin: Positive: Warm, Dry Head/Face: Positive: Normal Head/Face Inspection Eyes: Positive: Normal, EOMI, ROMAN, Conjunctiva Clear ENT: Positive: Normal ENT inspection, Pharynx normal, TMs normal Dental: Positive: Percussion Tenderness @ - erythema near tooth 15, Gross Decay/ Caries @ - throughout Neck: Positive: Supple, Nontender, No Lymphadenopathy Respiratory/Lung Sounds: Positive: Clear to Auscultation, Breath Sounds Present Cardiovascular: Positive: Normal, RRR Musculoskeletal: Positive: Normal Neurological: Positive: Normal Psychiatric: Positive: Normal Diagnostics - Vital Signs Vital Signs Temp Pulse Resp BP Pulse Ox 07/14/18 00:12 16 07/13/18 22:35 96.8 F 67 18 120/70 96 - Laboratory Lab Statement: Any lab studies that have been ordered have been reviewed, and results considered in the medical decision making process. EENT Course/Dx - Course Course Of Treatment: 23-year-old female presents with dental pain today. She will not able to follow up with dentist for a couple months. She states that the pain has been increasing. She states that ibuprofen for pain without relief. She denies any nausea or vomiting. No chest pain or shortness breath. No pain or swelling around her eyes. She denies a history of dental infections. On exam has tenderness tooth 15 with surrounding erythema. Will treat with penicillin. Told to follow up with dentist. Patient understands agrees with plan. - Differential Diagnoses Differential Diagnoses: Dental Abscess, Dental Caries, Fractured Tooth - Diagnoses Provider Diagnoses: Dental infection Discharge - Sign-Out/Discharge Documenting (check all that apply): Patient Departure - Discharge Plan Condition: Good Disposition: HOME Prescriptions: Penicillin VK TAB* [Penicillin VK 250 mg Tab*] 500 mg PO QID #27 tab Patient Education Materials: Toothache (ED) Referrals: Po Monaco MD [Primary Care Provider] - Additional Instructions: Take antibiotics: 4 times a day for 7 days, first dose given in ED Use ibuprofen or tyenlol every 6 hours Avoid hard, crunchy food until seen by dentist Follow up with dentist as soon as possible Return to ED if develop fever, shortness of breath, pain with eye movement or swelling around eye - Billing Disposition and Condition Condition: GOOD Disposition: Home Images - Images Dental: 1 - pain
[2018-07-14 00:21] VITALS: BP 122/75
== END 2018-07-14 00:21 | disposition home or self-care (01) ==
LOC: ED 22:30
DX: K04.7 Periapical abscess without sinus (principal); K02.9 Dental caries, unspecified
CPT/HCPCS: 96372; 99282; A9270-GY; J1885

== ENCOUNTER 2020-01-25 16:46 | Inpatient (IN) ==
[2020-01-25] MEDS ORDERED: Lactated Ringers 1000 ml BAG 1,000 ML IV ONE ×2 (17:22→19:11)
[2020-01-25] MEDS ORDERED: OBEPIDURAL 250 ML EPIDURAL ONE (17:38)
[2020-01-25] MEDS ORDERED: Lactated Ringers 1000 ml BAG 1,000 ML IV SCH ×2 (18:00→20:00)
[2020-01-25 18:43] LABS: Hematocrit 32 % (35-47); Hemoglobin 10.6 g/dL (12.0-16.0); Mean Corpuscular HGB Conc 33 g/dL (31-36); Mean Corpuscular Hemoglobin 24 pg (27-31); Mean Corpuscular Volume 73 fL (80-97); Mean Platelet Volume 9.4 fL (7.4-10.4); Platelet Count 164 10^3/uL (150-450); Red Blood Count 4.41 10^6 /uL (3.70-4.87); Red Cell Distribution Width 17 % (10-15)
[2020-01-25 18:52] LABS: ABS Eosinophils 0.1 10^3/ul (0-0.6); ABS Lymphocytes 1.7 10^3/ul (1.0-4.8); ABS Monocytes 0.8 10^3/ul (0-0.8); ABS Neutrophils 7.4 10^3/ul (1.5-7.7); Eosinophil % 0.5 %; Lymphocyte % 16.6 %; Nucleated Red Blood Cells % 0.1
[2020-01-25] MEDS ORDERED: Sodium Citrate/Citric Acid LIQ 15 ML UDC PO PRN (19:11)
[2020-01-25] MEDS ORDERED: Phenylephrine 40 mcg/mL 10mL (400mcg) SYRINGE IV PUSH PRN ×2 (19:11→21:12)
[2020-01-25] MEDS: Phenylephrine 40 mcg/mL 10mL (400mcg) SYRINGE IV PUSH PRN ×4 (19:30→19:57)
[2020-01-25 20:00] LABS: Urine Benzodiazepine Screen None Detected (None Detect); Urine Cannabinoids Screen None Detected (None Detect); Urine Opiates Screen None Detected (None Detect)
[2020-01-25] MEDS ORDERED: Oxytocin in LR 20 UNITS/1,000 ML BAG IVPB SCH (20:00)
[2020-01-25] MEDS ORDERED: OBEPIDURAL 250 ML EPIDURAL SCH (20:00)
[2020-01-26] MEDS ORDERED: Dibucaine 1% OINT 28.35 GM TUBE PR PRN (01:14)
[2020-01-26] MEDS ORDERED: Glycerin ADULT 2.4 gm SUPP PR PRN (01:14)
[2020-01-26] MEDS ORDERED: Witch Hazel PAD JAR TOPICAL PRN (01:14)
[2020-01-26] MEDS ORDERED: ceFAZolin 2 GM PREMIX 2 GM/50 ML BAG IVPB ONE (01:20)
[2020-01-26 01:31] LABS: ABS Basophils 0.1 10^3/ul (0-0.2); ABS Lymphocytes 1.5 10^3/ul (1.0-4.8); ABS Monocytes 0.9 10^3/ul (0-0.8); ABS Neutrophils 10.5 10^3/ul (1.5-7.7); Hematocrit 26 % (35-47); Hemoglobin 8.3 g/dL (12.0-16.0); Lymphocyte % 11.4 %; Mean Corpuscular HGB Conc 32 g/dL (31-36); Mean Corpuscular Hemoglobin 24 pg (27-31); Mean Corpuscular Volume 75 fL (80-97); Mean Platelet Volume 9.4 fL (7.4-10.4); Platelet Count 163 10^3/uL (150-450); Red Blood Count 3.44 10^6 /uL (3.70-4.87); Red Cell Distribution Width 17 % (10-15)
[2020-01-26] MEDS ORDERED: Lactated Ringers 1000 ml BAG 1,000 ML IV SCH (02:00)
[2020-01-26] MEDS ORDERED: EPHEDrine (Pressors) 50 MG/ML VIAL ONE (02:14)
[2020-01-26] MEDS ORDERED: Lidocaine 1% MPF 5 ML VIAL ONE (02:14)
[2020-01-26] MEDS ORDERED: Ammonia Inhalant 1 EA AMP ONE (09:02)
[2020-01-26 10:38] LABS: ABS Basophils 0.1 10^3/ul (0-0.2); ABS Lymphocytes 1.7 10^3/ul (1.0-4.8); ABS Monocytes 1.2 10^3/ul (0-0.8); Eosinophil % 0.1 %; Hematocrit 26 % (35-47); Hemoglobin 8.6 g/dL (12.0-16.0); Lymphocyte % 9.9 %; Mean Corpuscular HGB Conc 33 g/dL (31-36); Mean Corpuscular Hemoglobin 25 pg (27-31); Mean Corpuscular Volume 77 fL (80-97); Mean Platelet Volume 9.9 fL (7.4-10.4); Platelet Count 150 10^3/uL (150-450); Red Blood Count 3.41 10^6 /uL (3.70-4.87); Red Cell Distribution Width 19 % (10-15)
[2020-01-26 11:49] LABS: ABS Basophils 0.1 10^3/ul (0-0.2); ABS Lymphocytes 1.9 10^3/ul (1.0-4.8); ABS Monocytes 0.9 10^3/ul (0-0.8); ABS Neutrophils 12.2 10^3/ul (1.5-7.7); Eosinophil % 0.1 %; Hematocrit 27 % (35-47); Lymphocyte % 12.7 %; Mean Corpuscular HGB Conc 34 g/dL (31-36); Mean Corpuscular Hemoglobin 26 pg (27-31); Mean Corpuscular Volume 76 fL (80-97); Platelet Count 144 10^3/uL (150-450); Red Cell Distribution Width 19 % (10-15); White Blood Count 15.2 10^3/uL (3.5-10.8)
[2020-01-27 08:15] LABS: ABS Basophils 0.1 10^3/ul (0-0.2); ABS Eosinophils 0.1 10^3/ul (0-0.6); ABS Lymphocytes 2.1 10^3/ul (1.0-4.8); ABS Monocytes 0.6 10^3/ul (0-0.8); ABS Neutrophils 7.8 10^3/ul (1.5-7.7); Eosinophil % 1.2 %; Hematocrit 25 % (35-47); Hemoglobin 8.5 g/dL (12.0-16.0); Lymphocyte % 19.3 %; Mean Corpuscular HGB Conc 34 g/dL (31-36); Mean Corpuscular Hemoglobin 26 pg (27-31); Mean Corpuscular Volume 76 fL (80-97); Mean Platelet Volume 8.5 fL (7.4-10.4); Platelet Count 146 10^3/uL (150-450); Red Blood Count 3.31 10^6 /uL (3.70-4.87); Red Cell Distribution Width 19 % (10-15); White Blood Count 10.6 10^3/uL (3.5-10.8)
[2020-01-27 09:08] VITALS: BP 122/69
[2020-01-27] MEDS ORDERED: RHO D Immune Globulin (HUMAN) 300 MCG = 1,500 I.U. INJ IM ONE (14:05)
== END 2020-01-27 18:24 | disposition home or self-care (01) | DRG 541 ==
LOC: MCHOBOUT 16:46 → MCHOB 17:21
PROVIDERS: ADMIT Obstetrics & Gynecology; ATTEND Obstetrics & Gynecology

== ENCOUNTER 2022-07-21 07:47 | Inpatient (IN) ==
[2022-07-21] MEDS ORDERED: Buffered Lidocaine 1% SYRIN 1 ml ONE (09:34)
[2022-07-21 09:38] LABS: Urine Benzodiazepine Screen None Detected (None Detect); Urine Cannabinoids Screen None Detected (None Detect); Urine Opiates Screen None Detected (None Detect)
[2022-07-21] MEDS ORDERED: Lactated Ringers 1000 ml BAG 1,000 ML IV ONE ×2 (09:42→15:37)
[2022-07-21] MEDS ORDERED: Buffered Lidocaine 1% SYRIN 1 ml INTRADERM ONE (09:42)
[2022-07-21] MEDS ORDERED: Oxytocin in LR 20,000 MILLI.UNIT/1,000 ML BAG IV SCH ×2 (09:45→18:00)
[2022-07-21] MEDS ORDERED: Lactated Ringers 1000 ml BAG 1,000 ML IV SCH ×3 (10:00→18:00)
[2022-07-21 10:34] LABS: ABS Lymphocytes 1.5 10^3/ul (1.0-4.8); ABS Monocytes 0.6 10^3/ul (0-0.8); ABS Neutrophils 5.8 10^3/ul (1.5-7.7); Eosinophil % 0.6 %; Hematocrit 34 % (35-47); Hemoglobin 10.7 g/dL (12.0-16.0); Lymphocyte % 18.5 %; Mean Corpuscular HGB Conc 31 g/dL (31-36); Mean Corpuscular Hemoglobin 23 pg (27-31); Mean Corpuscular Volume 73 fL (80-97); Mean Platelet Volume 9.2 fL (7.4-10.4); Platelet Count 202 10^3/uL (150-450); Red Blood Count 4.73 10^6 /uL (3.70-4.87); Red Cell Distribution Width 23 % (10-15)
[2022-07-21] MEDS ORDERED: Lidocaine 1.5% EPI 1:200,000 30 ML SDV ONE (14:47)
[2022-07-21] MEDS ORDERED: OBEPIDURAL (200 ML) 200 ML EPIDURAL ONE (14:47)
[2022-07-21] MEDS ORDERED: Lidocaine/Epinephrin 1.5%/200 5 ML AMP INJ ONE (15:05)
[2022-07-21] MEDS ORDERED: Phenylephrine 40 mcg/mL 10mL (400mcg) SYRINGE IV PUSH PRN ×2 (15:37)
[2022-07-21] MEDS ORDERED: Sodium Citrate/Citric Acid LIQ 15 ML UDC PO PRN (15:37)
[2022-07-21] MEDS ORDERED: OBEPIDURAL (200 ML) 200 ML EPIDURAL SCH (16:00)
[2022-07-21] MEDS ORDERED: Witch Hazel PAD JAR TOPICAL PRN (17:49)
[2022-07-21] MEDS ORDERED: Dibucaine 1% OINT 28.35 GM TUBE PR PRN (17:49)
[2022-07-21] MEDS ORDERED: RHO D Immune Globulin (HUMAN) 300 MCG = 1,500 I.U. INJ IM PRN (17:49)
[2022-07-21] MEDS ORDERED: Glycerin ADULT 2.4 gm SUPP PR PRN (17:49)
[2022-07-21 19:59] LABS: Urine Appearance Clear; Urine Bilirubin Negative (Negative); Urine Blood 1+ (Negative); Urine Color Yellow; Urine Glucose Negative (Negative); Urine Ketones 1+ (Negative); Urine Nitrite Negative (Negative); Urine Protein Negative (Negative); Urine Specific Gravity 1.012 (1.002-1.030); Urine Urobilinogen Negative (Negative)
[2022-07-21 20:03] LABS: Urine Bacteria Absent (Absent); Urine Red Blood Cell 3+(>10/hpf) (Absent); Urine Squamous Epithelial Cell Present (Absent); Urine White Blood Cell Trace(0-5/hpf) (Absent)
[2022-07-22 06:18] LABS: ABS Lymphocytes 1.8 10^3/ul (1.0-4.8); ABS Monocytes 1.1 10^3/ul (0-0.8); ABS Neutrophils 15.2 10^3/ul (1.5-7.7); Eosinophil % 0.2 %; Hematocrit 29 % (35-47); Mean Corpuscular HGB Conc 31 g/dL (31-36); Mean Corpuscular Hemoglobin 22 pg (27-31); Mean Corpuscular Volume 71 fL (80-97); Mean Platelet Volume 8.8 fL (7.4-10.4); Platelet Count 184 10^3/uL (150-450); Red Blood Count 4.08 10^6 /uL (3.70-4.87); Red Cell Distribution Width 22 % (10-15); White Blood Count 18.1 10^3/uL (3.5-10.8)
[2022-07-22 16:20] VITALS: BP 95/60
== END 2022-07-22 19:20 | disposition home or self-care (01) | DRG 560 ==
LOC: MCHOBOUT 07:47 → MCHOB 09:17
PROVIDERS: ADMIT Midwife; ATTEND Midwife